=== PATIENT | male | born 1965 | race Hispanic/Latino ===

== ENCOUNTER 2018-12-02 06:21 | Day surgery (SDC) | payer BC ==
[2018-11-29 09:35] VITALS: BP 149/95
[2018-12-02] VITALS (18 sets, daily range): BP systolic 133–160; BP diastolic 79–108
[~2018-12-02] VITALS: Ht 179.1 cm; Wt 99.9 kg
[~2018-12-02 06:21] MED LIST: ACYC400T PO; AMLO10TA7 PO; LISI2.5T2 PO; LOVA20TA3 PO; OMEP40CA37 PO
[2018-12-02] MEDS ORDERED: LACTATED RINGERS 1000ML 1,000 ML IV ONE (07:01)
[2018-12-02] MEDS ORDERED: LIDOCAINE HCL MDV 0.5% 50ML VIAL IJ ONE (07:08)
[2018-12-02] MEDS ORDERED: NEOMY SULF/POLYMYXIN B SULFATE 1 ML AMPUL IR ONE (07:09)
[2018-12-02] MEDS ORDERED: BUPIVACAINE/EPI/PF 0.5% 30ML VIAL IJ ONE (07:10)
[2018-12-02] MEDS: CEFAZOLIN SODIUM 1 GM VIAL IVP PRN ×2 (07:15→07:50)
--- NOTE | 2018-12-02 07:16 | NUR ---
VALUABLES: CLOTHING, CELL PHONE, MEDICATIONS AND WALLET GIVEN TO - LUCIEN SUKUMARDAD.
[2018-12-02] MEDS ORDERED: LIDOCAINE PF 2% 5ML ABBOJECT ONE (07:24)
[2018-12-02] MEDS ORDERED: LIDOCAINE HCL 4% LTA SOL 4 ML VIAL ONE (07:25)
[2018-12-02] MEDS ORDERED: MIDAZOLAM HCL 1 MG/ML 2ML VIAL ONE (07:25)
[2018-12-02] MEDS ORDERED: DEXAMETHASONE SOD PHOSPHATE 4 MG/ML 1ML VIAL ONE (07:25)
[2018-12-02] MEDS ORDERED: FENTANYL CITRATE PF 50 MCG/1 ML 2ML VIAL ONE (07:26)
[2018-12-02] MEDS ORDERED: ONDANSETRON HCL 4 MG/2 ML VIAL ONE (07:26)
[2018-12-02] MEDS ORDERED: PROPOFOL 10 MG/ML 20ML VIAL IV ONE (07:26)
[2018-12-02] MEDS ORDERED: ROCURONIUM 10MG/1ML SYR 10 MG/ML ML ONE (07:27)
[2018-12-02] MEDS ORDERED: GLYCOPYRROLATE 1 MG/5 ML SYRINGE ONE (07:27)
[2018-12-02] MEDS ORDERED: NEOSTIGMINE 5MG/5ML SYR IV ONE (07:27)
[2018-12-02] MEDS ORDERED: MEPERIDINE-PF 25 MG/ML SYG ONE (09:01)
[2018-12-02] MEDS ORDERED: MORPHINE SULFATE 4 MG/1ML SYG ONE (09:09)
[2018-12-02] MEDS ORDERED: KETOROLAC TROMETHAMINE 30MG/ML ONE (09:27)
== END 2018-12-02 10:37 | disposition home or self-care (01) ==
LOC: DAH 06:21
PROVIDERS: ATTEND Surgery
DX: K80.10 Calculus of gallbladder with chronic cholecystitis without obstruction (principal); Z68.32 Body mass index [BMI] 32.0-32.9, adult; Z79.899 Other long term (current) drug therapy; E78.5 Hyperlipidemia, unspecified; I10 Essential (primary) hypertension; Z82.49 Family history of ischemic heart disease and other diseases of the circulatory system; Z80.0 Family history of malignant neoplasm of digestive organs; G47.30 Sleep apnea, unspecified; K21.9 Gastro-esophageal reflux disease without esophagitis; E66.9 Obesity, unspecified; Z98.890 Other specified postprocedural states
CPT/HCPCS: 47562; 88304; A4218; A4450; A4649 ×3; A6251; C1769 ×3; J0690; J1100; J1885; J2001; J2175; J2250; J2270; J2405; J2704; J2710; J3010; J3490 ×4; J7030; J7120 ×2

== ENCOUNTER → 2023-06-26 | Outpatient (CLI) | payer OTHER ==
[~2023-06-26] MED LIST changes: -ACYC400T PO; +ACYC400T20 PO; +AMLO-258 PO; -AMLO10TA7 PO; +LISI2.5T13 PO; -LISI2.5T2 PO; +OMEP40CA21 PO; -OMEP40CA37 PO
== END | disposition home or self-care (01) ==
LOC: OIH 14:42
PROVIDERS: ATTEND Internal Medicine Cardiovascular Disease
DX: Z13.6 Encounter for screening for cardiovascular disorders (principal); R93.1 Abnormal findings on diagnostic imaging of heart and coronary circulation
CPT/HCPCS: 75571

== ENCOUNTER → 2024-07-24 | Outpatient (CLI) | payer BC ==
[2024-07-24 12:38] LABS: CREATININE 1.4 mg/dL (0.5-1.3); POTASSIUM 4.1 mmol/L (3.5-5.1)
== END | disposition home or self-care (01) ==
LOC: LAB 08:19
PROVIDERS: ATTEND Internal Medicine Cardiovascular Disease
DX: I10 Essential (primary) hypertension (principal)
CPT/HCPCS: 36415; 80048